=== PATIENT | male | born 1995 | race Caucasian/White ===

== ENCOUNTER → 2016-08-11 | Outpatient (CLI) | payer BC ==
[~2016-08-11] VITALS: Ht 180.3 cm; Wt 147.4 kg
[2016-08-11] VITALS (36 sets, daily range): BP systolic 45–126; BP diastolic 30–110
[~2016-08-11] MED LIST: NS IV 1000 ML 1,000 ML ONE
--- NOTE | 2016-08-13 10:12 | TILT TABLE TEST ---
PROCEDURE PHYSICIAN: EDGARD DORSEY TILT TABLE TEST DATE OF PROCEDURE: 08/11/2016 CLINICAL DIAGNOSIS: Syncope. The patient was made to lie flat. Baseline blood pressure was obtained. water filterer was attached. The heart rhythm was monitored continuously. Blood pressure was obtained every minute. The table was tilted with the head up to 70 degrees. Approximately 15 minutes of the study, there was approximately 30 mm drop in blood pressure with a systolic blood pressure in the low 80s. There were associated symptoms of near syncope. This indicates a vasodepressive response to this study. There was no significant bradycardia. CONCLUSIONS: Tilt table test positive for vasodepressor response (vasodepressor syncope without bradycardia). Job ID: [id number] Dictated Date: 08/11/2016 14:07:59 Design Editor Date: 08/13/2016 10:02:07 / eliza
== END ==
LOC: CARD 07:45
PROVIDERS: ATTEND Nurse Practitioner Family
DX: R55 Syncope and collapse (principal); Z79.899 Other long term (current) drug therapy
CPT/HCPCS: 93660

== ENCOUNTER → 2016-08-19 | Outpatient (CLI) | payer BC ==
[~2016-08-19] MED LIST changes: +CATHETER FLUSH 10 ML SYR IV PRN; +IOHEXOL 350 MG/ML 100 ML (OMNIPAQUE 350) VIAL IV ONE; +NS 100 ML (IVPB) BAG IV ONE; -NS IV 1000 ML 1,000 ML ONE
--- NOTE | 2016-08-19 14:03 | Diagnostic Imaging Report ---
CLINICAL INDICATION: Patient states he passes out when he is off and on since he was a child. EXAM: Axial CT scan of brain performed without and with 80 cc of Omnipaque 250 IV contrast. COMPARISON: None. FINDINGS: There is no evidence of acute cerebral infarct, intracranial hemorrhage, or gross mass effect. There is normal cotton-white matter distinction. The brain parenchymal volume appears appropriate for patient's age. There is no significant midline shift or herniation. The visualized portion [place] are unremarkable. The [place] vascular structures show no gross abnormality as visualized. There is no evidence of hydrocephalus. The basal cisterns are unremarkable. The skull, extracranial soft tissue, and orbits are unremarkable. There is no significant abnormality as visualized. IMPRESSION: Unremarkable CT scan of the brain. Dictated by: Dictated on workstation # [id number]
== END ==
LOC: RAD 13:17
PROVIDERS: ATTEND Internal Medicine Cardiovascular Disease
DX: R55 Syncope and collapse (principal); E66.09 Other obesity due to excess calories
CPT/HCPCS: 70470

== ENCOUNTER → 2016-09-01 | Outpatient (CLI) | payer BC ==
--- NOTE | 2016-09-03 07:17 | ECHOCARDIOGRAPHY REPORT ---
DATE OF SERVICE: 09/01/2016 ECHOCARDIOGRAM ORDERING PHYSICIAN: Dr. Ron. PRIMARY PHYSICIAN: Dr. Correa. CLINICAL DIAGNOSIS: Syncope. MEASUREMENTS: Left atrium 4.2. Aortic root 3. LV diameter diastolic 5. IVS thickness, diastolic 1.2. LVPW thickness, diastolic 1.2. DESCRIPTION: Two-dimensional echocardiography shows normal global left ventricular systolic function without any distinct regional wall motion abnormality. Aortic, mitral and tricuspid valve leaflets show good leaflet excursion. There is no significant pericardial effusion. Doppler imaging shows trivial tricuspid regurgitation. There is no Doppler evidence of any significant valvular stenosis. Good subcostal views are not available. On the views available, there is no distinct evidence of intracardiac shunt and the inferior vena cava did not appear to be dilated. CONCLUSIONS: 1. Technically somewhat difficult study. 2. Normal global left ventricular systolic function with ejection fraction approximately 60%. 3. Trivial tricuspid regurgitation. 4. No evidence of any significant valvular stenosis. Job ID: [id number] DocumentID: [id number] Dictated Date: 09/02/2016 14:10:55 Copyman Date: 09/02/2016 14:57:25 Dictated By: EDGARD RON MD, MA, FACP, FACC,
== END ==
LOC: CARD 12:59
PROVIDERS: ATTEND Internal Medicine Cardiovascular Disease
DX: R55 Syncope and collapse (principal); E66.09 Other obesity due to excess calories
CPT/HCPCS: 93306